=== PATIENT | female | born 1945 | race Two or more races ===

== ENCOUNTER 2018-02-25 13:30 | Inpatient (IN) | payer OTHER ==
[~2018-02-25] VITALS: Wt 5.0 kg
[2018-02-25] MEDS ORDERED: SYNTHROID50 MCG PO (16:01)
[2018-02-25] MEDS ORDERED: PROTONIX40 M1 PO (16:01)
[2018-02-25] MEDS ORDERED: JANUMET XR 1001 EACH PO (16:02)
[2018-02-25] MEDS ORDERED: [UNRECOGNIZED DRUG - OTHER] PO (16:03)
[2018-02-25] MEDS ORDERED: COZAAR25 MG PO (16:04)
[2018-02-25] MEDS ORDERED: [UNRECOGNIZED DRUG - OTHER] PO (16:04)
[2018-02-25] MEDS ORDERED: CARDURA8 MG PO (16:05)
[2018-02-25] MEDS ORDERED: ZOLOFT100 MG PO (16:05)
[2018-02-25] MEDS ORDERED: NORVASC5 MG PO (16:05)
[2018-02-25] MEDS ORDERED: TRICOR145 MG PO (16:06)
[2018-02-25] MEDS ORDERED: LIPITOR20 MG PO (16:06)
[2018-02-25] MEDS ORDERED: ZETIA10 MG PO (16:06)
[2018-03-03] MEDS ORDERED: DOCUSATE SODIU100 MG PO (10:17)
[2018-03-03] MEDS ORDERED: CLONAZEPAM0.5 MG PO (10:18)
[2018-03-03] MEDS ORDERED: PERCOCET 5-3251 EACH PO (10:18)
== END 2018-03-03 17:20 | DRG 454 ==
LOC: O/R 03-02 05:47 → RECOVERY 03-02 10:15 → SURG 03-02 16:43
PROVIDERS: ADMIT Orthopaedic Surgery Orthopaedic Surgery of the Spine
PROC: 0RG2071 Fusion of 2 or more Cervical Vertebral Joints with Autologous Tissue Substitute, Posterior Approach, Posterior Column, Open Approach (ICD-10-PCS; 2018-03-02)
PROC: 0RT30ZZ Resection of Cervical Vertebral Disc, Open Approach (ICD-10-PCS; 2018-03-02)
PROC: 07DS3ZZ Extraction of Vertebral Bone Marrow, Percutaneous Approach (ICD-10-PCS; 2018-03-02)
PROC: 0RG20A0 Fusion of 2 or more Cervical Vertebral Joints with Interbody Fusion Device, Anterior Approach, Anterior Column, Open Approach (ICD-10-PCS; principal; 2018-03-02 10:15)
DX: M47.12 Other spondylosis with myelopathy, cervical region (principal); M50.01 Cervical disc disorder with myelopathy, high cervical region; I10 Essential (primary) hypertension; E11.9 Type 2 diabetes mellitus without complications